=== PATIENT | female | born 1970 | race Two or more races ===

== ENCOUNTER 2023-02-25 12:27 | Emergency (ER) | payer OTHER ==
[~2023-02-25] VITALS: Ht 162.6 cm; Wt 104.3 kg
[2023-02-25] MEDS ORDERED: LOSARTAN-HCTZ1 EACH PO (12:56)
[2023-02-25] MEDS ORDERED: NORFLEX100MG PO (14:31)
== END 2023-02-25 14:34 | disposition home or self-care (01) ==
LOC: ER 12:27
DX: M77.8 Other enthesopathies, not elsewhere classified (principal); I10 Essential (primary) hypertension; Z88.6 Allergy status to analgesic agent

== ENCOUNTER 2025-08-11 11:35 | Emergency (ER) | payer OTHER ==
[~2025-08-11] VITALS: Ht 160 cm; Wt 104.3 kg
[~2025-08-11 11:35] MED LIST: LOSARTAN-HCTZ1 EACH PO; NORFLEX100MG PO
[2025-08-11] MEDS ORDERED: ORPHENADRINE CITRATE 30 MG/ML AMPUL IM ONE (14:15)
[2025-08-11] MEDS ORDERED: NORFLEX100MG PO (15:10)
== END 2025-08-11 15:55 | disposition home or self-care (01) ==
LOC: ER 11:36
DX: M94.0 Chondrocostal junction syndrome [Tietze] (principal); Z88.0 Allergy status to penicillin; Z88.6 Allergy status to analgesic agent; I10 Essential (primary) hypertension; R07.9 Chest pain, unspecified